=== PATIENT | male | born 1925 | race Native Hawaiian/Other Pacific Islander ===

== ENCOUNTER 2016-08-21 10:44 | Emergency (ER) | payer MEDICARE, OTHER ==
[2016-08-21 10:53] VITALS: BMI 23.6
--- NOTE | 2016-08-21 11:14 | C.PDOC ---
History Of Present Illness 61 y/o male presents to ED status post trip and fall while walking to vote yesterday. Patient states he broke fall with his hands and hit the ground with bilateral knees and forehead. Denies LOC, visual changes, nausea, vomiting, extremity weakness or numbness, or other associated symptoms. - HPI Time Seen by Provider: 08/21/16 11:03 Chief Complaint (Nursing): Trauma History Per: Patient History/Exam Limitations: no limitations Injury Occurred (Timing): Days Ago: (1) Location Of Injury: Right: Knee, Left: Hand, Knee, Anterior: Face Recent travel outside of the [place]: No Past Medical History Reviewed: Historical Data, Nursing Documentation, Vital Signs Vital Signs: Last Vital Signs Temp 97.8 F 08/21/16 10:53 Pulse 79 08/21/16 10:53 Resp 18 08/21/16 10:53 BP 127/69 08/21/16 10:53 Pulse Ox 96 08/21/16 12:27 - Medical History PMH: Benign Prostatic Hyperplasia, HTN, Hyperlipidemia Surgical History: Pacemaker Family History: States: Unknown Family Hx - Social History Hx Alcohol Use: No Hx Substance Use: No Review Of Systems Except As Marked, All Systems Reviewed And Found Negative. Constitutional: Negative for: Fever, Chills Cardiovascular: Negative for: Chest Pain Respiratory: Negative for: Cough, Shortness of Breath, Wheezing Gastrointestinal: Negative for: Nausea, Vomiting, Abdominal Pain Skin: Positive for: Bruising (left periorbital area), Other (abrasions to left hand, bilateral knees). Negative for: Rash Neurological: Negative for: Headache, Dizziness Physical Exam - Physical Exam Appears: Non-toxic, No Acute Distress Skin: Normal Color, Warm, Dry Head: Atraumatic, Normacephalic, Swelling (left periorbital ecchymosis) Eye(s): bilateral: PERRL, EOMI Ear(s): Bilateral: Normal Nose: Normal Oral Mucosa: Moist Neck: No Midline Cervical Tenderness, No Paracervical Tenderness, No Step Off Deformity, Supple Chest: Symmetrical Cardiovascular: Rhythm Regular Respiratory: Normal Breath Sounds, No Rales, No Rhonchi, No Wheezing Gastrointestinal/Abdominal: Soft, No Tenderness, No Distention, No Guarding, No Rebound Back: Normal Inspection, No Vertebral Tenderness, No Paraspinal Tenderness Extremity: Normal ROM, No Tenderness, Capillary Refill (< 2 sec. ), No Deformity , Other (superficial abrasions: left hand, bilateral anterior knees) Extremity: Bilateral: Normal Color And Temperature Pulses: Left Radial: Normal, Right Radial: Normal Neurological/Psych: Oriented x3, Normal Speech, Normal Cognition, Normal Motor, Normal Sensation ED Course And Treatment O2 Sat by Pulse Oximetry: 96 (RA) Pulse Ox Interpretation: Normal - Other Rad Left Hand XR X-Ray: Viewed By Me, Read By Radiologist Interpretation: No acute fracture or dislocation. - CT Scan/US CT Head Other Rad Studies (CT/US): Read By Radiologist, Radiology Report Reviewed CT/US Interpretation: IMPRESSION: No evidence of acute intracranial hemorrhage. Focal encephalomalacia anterior right temporal and high right frontal vertex. Possible old infarcts. Age-appropriate atrophy and chronic white matter ischemic change. FINDINGS: VERTEBRAE: The current study reveals no acute compression fractures nor retropulsed fragments. Vertebral bodies exhibit relatively normal stature. Vertebral bodies and facets normally aligned. DISCS/SPINAL CANAL/NEURAL FORAMINA: Mild multilevel degenerative spondylosis. At the C2-C3 level, there is relatively adequate disc height. Small central and bilateral disc bulge results in mild canal narrowing and cord compression. . The right the facet joints also moderately hypertrophic with right-sided foraminal narrowing. At the C3-C4 level, there is disc space narrowing more so along the anterior disc margin with small broad-based disc bulge ridge complex. These changes also result in mild to moderate canal narrowing and cord compression. Uncovertebral and facet arthropathy result in bilateral foraminal stenosis. At the C4-C5 level, there is mild disc space narrowing more so along the posterior disc margin. Small broad-based disc bulge ridge complex is also present and results in mild flattening of the ventral surface of the cord. Uncovertebral facet arthropathy result in mild bilateral foraminal narrowing. At the C5-C6 level, there is moderate disc space narrowing with endplate eburnation mid small broad-based posterior osteophytic ridge disc complex. The uncovertebral joints are hypertrophic as are the facets. Exit foramina are narrowed bilaterally. Similar changes seen at the C6- C7 level. PARASPINAL SOFT TISSUES: Prevertebral and paraspinal soft tissues grossly unremarkable. OTHER FINDINGS: Mild partially calcified atherosclerotic plaque changes both distal common carotid arteries, carotid bifurcations and proximal internal carotid arteries. Consider follow-up carotid Doppler exam. Mild biapical pleural thickening and parenchymal scarring with small bleb changes both lung apices. In situ pacemaker seen. IMPRESSION: No acute fractures. 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 See above discussion for additional details, findings and recommendations. FINDINGS: RIGHT ORBIT: RIGHT BONY ORBIT: Normal. RIGHT INTRAORBITAL STRUCTURES: Globe: Evidence of prior cataract repair. Extraocular muscles: Normal. Post septal space: Normal. Optic Nerve: Normal. Lacrimal Apparatus: Normal. RIGHT PRESEPTAL SOFT TISSUES: Normal. LEFT ORBIT : LEFT BONY ORBIT: Normal. LEFT INTRAORBITAL STRUCTURES: Globe: Evidence of prior cataract repair. Extraocular muscles: Normal. Post septal space: Normal. Optic Nerve: Normal. . Lacrimal Apparatus: Normal. LEFT PRESEPTAL SOFT TISSUES: Normal. OTHER: No evidence of facial fracture. IMPRESSION: No evidence of acute orbital fracture. No facial fracture identified. Progress Note: CT scans and x-ray ordered. on re-evaluation ambulating with steady gait Reassessment Condition: Unchanged Disposition Counseled Patient/Family Regarding: Studies Performed, Diagnosis, Need For Followup - Disposition Disposition: HOME/ ROUTINE Disposition Time: 12:40 Condition: STABLE Instructions: Fall Prevention for Older Adults (ED), Facial Contusion (ED), Abrasion (ED) - POA Present On Arrival: None - Clinical Impression Clinical Impression: Contusion, Head injury - PA / [employer] / Resident Statement MD/DO has reviewed & agrees with the documentation as recorded. - Scribe Statement The provider has reviewed the documentation as recorded by the Cristobal Smith All medical record entries made by the Cristobal were at my direction and personally dictated by me. I have reviewed the chart and agree that the record accurately reflects my personal performance of the history, physical exam, medical decision making, and the department course for this patient. I have also personally directed, reviewed, and agree with the discharge instructions and disposition.
--- NOTE | 2016-08-21 11:33 | RAD ---
PROCEDURE: Left Hand Radiographs. HISTORY: Fall COMPARISON: None. FINDINGS: BONES: Bone alignment and mineralization are normal. There is no acute fracture or bone destruction. JOINTS: There is mild degenerative osteoarthrosis in the interphalangeal joints. SOFT TISSUES: Normal. OTHER FINDINGS: None. IMPRESSION: No acute fracture or dislocation.
--- NOTE | 2016-08-21 12:27 | CT ---
PROCEDURE: CT HEAD WITHOUT CONTRAST. HISTORY: fall COMPARISON: None available. TECHNIQUE: Axial computed tomography images were obtained through the head/brain without intravenous contrast. Radiation dose: Total exam DLP = 965.16 mGy-cm. This CT exam was performed using one or more of the following dose reduction techniques: Automated exposure control, adjustment of the mA and/or kV according to patient size, and/or use of iterative reconstruction technique. FINDINGS: HEMORRHAGE: No intracranial hemorrhage. BRAIN: No mass effect or edema. There is focal encephalomalacia in the high right frontal vertex and in the anterior right temporal lobe. This may be the result of prior infarct in these locations. There is no evidence of acute infarct. There is moderate diffuse age-appropriate cerebral atrophy. There is moderate chronic microvascular ischemic change involving the periventricular and deep white matter. VENTRICLES: No hydrocephalus. Mild ex vacuo dilatation of the 3rd and lateral ventricles. No midline shift. CALVARIUM: Unremarkable. PARANASAL SINUSES: Unremarkable as visualized. No significant inflammatory changes. MASTOID AIR CELLS: Unremarkable as visualized. No inflammatory changes. OTHER FINDINGS: None. IMPRESSION: No evidence of acute intracranial hemorrhage. Focal encephalomalacia anterior right temporal and high right frontal vertex. Possible old infarcts. Age-appropriate atrophy and chronic white matter ischemic change.
--- NOTE | 2016-08-21 12:35 | CT ---
PROCEDURE: CT scan cervical spine dated 08/21/2016. HISTORY: <fall> COMPARISON: None available. TECHNIQUE: Axial computed tomography images were obtained of the cervical spine without the use of intravenous contrast. Coronal and sagittal reformatted images were created and reviewed. Radiation dose: Total exam DLP = 406.96 mGy-cm. This CT exam was performed using one or more of the following dose reduction techniques: Automated exposure control, adjustment of the mA and/or kV according to patient size, and/or use of iterative reconstruction technique. FINDINGS: VERTEBRAE: The current study reveals no acute compression fractures nor retropulsed fragments. Vertebral bodies exhibit relatively normal stature. Vertebral bodies and facets normally aligned. DISCS/SPINAL CANAL/NEURAL FORAMINA: Mild multilevel degenerative spondylosis. At the C2-C3 level, there is relatively adequate disc height. Small central and bilateral disc bulge results in mild canal narrowing and cord compression. . The right the facet joints also moderately hypertrophic with right-sided foraminal narrowing. At the C3-C4 level, there is disc space narrowing more so along the anterior disc margin with small broad-based disc bulge ridge complex. These changes also result in mild to moderate canal narrowing and cord compression. Uncovertebral and facet arthropathy result in bilateral foraminal stenosis. At the C4-C5 level, there is mild disc space narrowing more so along the posterior disc margin. Small broad-based disc bulge ridge complex is also present and results in mild flattening of the ventral surface of the cord. Uncovertebral facet arthropathy result in mild bilateral foraminal narrowing. At the C5-C6 level, there is moderate disc space narrowing with endplate eburnation mid small broad-based posterior osteophytic ridge disc complex. The uncovertebral joints are hypertrophic as are the facets. Exit foramina are narrowed bilaterally. Similar changes seen at the C6-C7 level. PARASPINAL SOFT TISSUES: Prevertebral and paraspinal soft tissues grossly unremarkable. OTHER FINDINGS: Mild partially calcified atherosclerotic plaque changes both distal common carotid arteries, carotid bifurcations and proximal internal carotid arteries. Consider follow-up carotid Doppler exam. Mild biapical pleural thickening and parenchymal scarring with small bleb changes both lung apices. In situ pacemaker seen. IMPRESSION: No acute fractures. 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 See above discussion for additional details, findings and recommendations.
--- NOTE | 2016-08-21 12:37 | CT ---
PROCEDURE: CT ORBITS WITHOUT CONTRAST. HISTORY: fall COMPARISON: None available. TECHNIQUE: Axial CT images of the orbits were obtained. Coronal and sagittal reformats were generated. Radiation dose: Total exam DLP = 851.13 mGy-cm. This CT exam was performed using one or more of the following dose reduction techniques: Automated exposure control, adjustment of the mA and/or kV according to patient size, and/or use of iterative reconstruction technique. FINDINGS: RIGHT ORBIT: RIGHT BONY ORBIT: Normal. RIGHT INTRAORBITAL STRUCTURES: Globe: Evidence of prior cataract repair. Extraocular muscles: Normal. Post septal space: Normal. Optic Nerve: Normal. Lacrimal Apparatus: Normal. RIGHT PRESEPTAL SOFT TISSUES: Normal. LEFT ORBIT: LEFT BONY ORBIT: Normal. LEFT INTRAORBITAL STRUCTURES: Globe: Evidence of prior cataract repair. Extraocular muscles: Normal. Post septal space: Normal Optic Nerve: Normal. . Lacrimal Apparatus: Normal. LEFT PRESEPTAL SOFT TISSUES: Normal. OTHER: No evidence of facial fracture. IMPRESSION: No evidence of acute orbital fracture. No facial fracture identified.
[2016-08-21 13:01] VITALS: BP 114/58; PULSE 68; RESP 20; TEMP 97.6; O2SAT 99
== END 2016-08-21 13:02 | disposition home or self-care (01) ==
LOC: C.ER 10:44
DX: S00.83XA Contusion of other part of head, initial encounter (principal); W01.0XXA Fall on same level from slipping, tripping and stumbling without subsequent striking against object, initial encounter; Y93.01 Activity, walking, marching and hiking; Y92.89 Other specified places as the place of occurrence of the external cause